=== PATIENT | female | born 1990 | race Caucasian/White ===

== ENCOUNTER 2021-04-19 08:51 | Observation (INO) | payer OTHER ==
[~2021-04-19] VITALS: Ht 167.6 cm; Wt 86.2 kg
[2021-04-19] MEDS ORDERED: FERR325E14 PO (09:11)
[2021-04-19] MEDS ORDERED: AMOX500C25 PO (09:11)
[2021-04-19] MEDS ORDERED: PNV91TAB8 PO (09:11)
[2021-04-19 09:25] VITALS: BP 105/64
== END 2021-04-19 12:00 | disposition home or self-care (01) ==
LOC: MLD 08:51
PROVIDERS: ADMIT Obstetrics & Gynecology; ATTEND Obstetrics & Gynecology
DX: O26.893 Other specified pregnancy related conditions, third trimester (principal); R10.9 Unspecified abdominal pain; Z3A.29 29 weeks gestation of pregnancy
CPT/HCPCS: 36415; 59025; 81000; 86886; 86900; 86901; G0378; G0379

== ENCOUNTER 2021-07-03 22:30 | Inpatient (IN) | payer OTHER, SELFPAY ==
[~2021-07-03] VITALS: Ht 170.2 cm; Wt 95.3 kg
[~2021-07-03 22:30] MED LIST: AMOX500C25 PO; FERR325E14 PO; PNV91TAB8 PO
[2021-07-03] MEDS ORDERED: ONDANSETRON 4 MG/2 ML VIAL IVP PRN (23:45)
[2021-07-03] MEDS ORDERED: MORPHINE SULFATE 5 MG/ML VIAL IVP PRN (23:45)
[2021-07-04] MEDS ORDERED: MISOPROSTOL 25 MCG TAB VG SCH
[2021-07-04] MEDS ORDERED: MISOPROSTOL 25 MCG TAB ONE (00:13)
[2021-07-04 00:16] LABS: BASOPHILS % (AUTO) 0.2 % (0.0-2.0); EOSINOPHILS % (AUTO) 0.6 % (0.0-4.0); HEMATOCRIT 28.4 % (36-48); HEMOGLOBIN 9.8 g/dL (12.0-16.0); LYMPHOCYTES # (AUTO) 1.7 K/uL (2.5-16.5); LYMPHOCYTES % (AUTO) 20.7 % (20.5-51.1); MEAN CORPUSCULAR HEMOGLOBIN 31 pg (27-31); MEAN CORPUSCULAR HGB CONC 34 g/dL (33-37); MEAN CORPUSCULAR VOLUME 88.7 fL (80-94); MONOCYTES # (AUTO) 0.5 K/uL (0.8-1.0); NEUTROPHILS # (AUTO) 6.1 K/uL (1.8-7.7); NEUTROPHILS % (AUTO) 72.5 % (42.2-75.2); PLATELET COUNT (AUTO) 156 K/uL (140-450); RED CELL DISTRIBUTION WIDTH 15.9 % (11.6-13.7); WHITE BLOOD COUNT (AUTO) 8.4 K/uL (4.8-10.8)
[2021-07-04] MEDS: LACTATED RINGERS 1,000 ML IV SCH ×2 (00:23→20:36)
[2021-07-04 00:30] LABS: APPEARANCE,URINE CLEAR (CLEAR); BILIRUBIN,URINE NEGATIVE (NEGATIVE); BLOOD, URINE NEGATIVE (NEGATIVE); COLOR,URINE YELLOW (YELLOW); LEUKOCYTE ESTERASE ,URINE NEGATIVE (NEGATIVE); NITRITE, URINE NEGATIVE (NEGATIVE); UGLUCOSE NEGATIVE (NEGATIVE)
[2021-07-04 00:32] LABS: ALBUMIN 2.6 g/dL (3.4-5.0); ANION GAP 13.4 (8-16); CARBON DIOXIDE 24.3 mmol/L (21-32); CREATININE 0.5 mg/dL (0.6-1.3); POTASSIUM 3.7 mmol/L (3.5-5.1); TOTAL BILIRUBIN 0.2 mg/dL (0.0-1.0)
[2021-07-04 01:24] VITALS: BP 112/81
[2021-07-04] MEDS ORDERED: OXYTOCIN 20 UNITS in LACTATED RINGERS 1,000 ML IV SCH (06:00)
--- NOTE | 2021-07-04 09:33 | NUR ---
PATIENT HAS BEEN SCREENED AND CATEGORIZED LOW NUTRITION RISK. PATIENT WILL BE SEEN WITHIN 7 DAYS OF ADMISSION. 07/10/[address]
[2021-07-04] MEDS ORDERED: MORPHINE SULFATE 10 MG/ML VIAL ONE (17:19)
[2021-07-04 17:27] VITALS: BP 122/76
[2021-07-04] MEDS ORDERED: AMPICILLIN 2,000 MG VIAL ONE (17:28)
[2021-07-04] MEDS ORDERED: OXYTOCIN 20 UNITS/LR PREMIX 1,000 ML IV ONE (17:48)
[2021-07-04] MEDS ORDERED: ROPIVACAINE 0.2%/NS PREMIX 200 ML EPI ONE (18:30)
[2021-07-04] MEDS ORDERED: fentaNYL citrate 0.05 MG/ML VIAL ONE (19:18)
[2021-07-04] MEDS ORDERED: AMPICILLIN 1,000 MG VIAL ONE (20:58)
[2021-07-04] MEDS ORDERED: AMPICILLIN 1,000 MG in NACL 0.9% 50 ML IV SCH (21:30)
[2021-07-04] MEDS ORDERED: METHYLERGONOVINE 0.2 MG TAB PO PRN (23:30)
[2021-07-04] MEDS ORDERED: DOCUSATE SODIUM 100 MG GELCAP PO PRN (23:30)
[2021-07-04] MEDS ORDERED: MEASLES, MUMPS, AND RUBELLA 1 VIAL SQVAC ONE (23:30)
[2021-07-04] MEDS ORDERED: OXYTOCIN 10 UNITS/ML VIAL IM PRN (23:30)
[2021-07-04] MEDS ORDERED: IBUPROFEN 800 MG TAB PO PRN (23:30)
[2021-07-04] MEDS ORDERED: BENZOCAINE/MENTHOL 20%-0.5% 60 GM CAN TP PRN (23:30)
[2021-07-04] MEDS ORDERED: SIMETHICONE 80 MG TAB.CHEW PO PRN (23:30)
[2021-07-04] MEDS ORDERED: IBUPROFEN 600 MG TAB PO PRN (23:30)
[2021-07-04] MEDS ORDERED: bisacodyL 5 MG TABEC PO PRN (23:30)
[2021-07-04] MEDS ORDERED: METHYLERGONOVINE 0.2 MG/ML AMP IM PRN (23:30)
[2021-07-05 08:27] LABS: HEMATOCRIT 29.8 % (36-48); HEMOGLOBIN 10.2 g/dL (12.0-16.0)
== END 2021-07-06 18:50 | disposition home or self-care (01) | DRG 560 ==
LOC: MLD 22:30 → MFCC 07-05 03:21
PROVIDERS: ADMIT Obstetrics & Gynecology; ATTEND Obstetrics & Gynecology
PROC: 10E0XZZ Delivery of Products of Conception, External Approach (ICD-10-PCS; principal; 2021-07-04)
PROC: 3E0P7GC Introduction of Other Therapeutic Substance into Female Reproductive, Via Natural or Artificial Opening (ICD-10-PCS; 2021-07-04)
PROC: 3E0R3BZ Introduction of Anesthetic Agent into Spinal Canal, Percutaneous Approach (ICD-10-PCS; 2021-07-04)
PROC: 00HU33Z Insertion of Infusion Device into Spinal Canal, Percutaneous Approach (ICD-10-PCS; 2021-07-04)
PROC: 3E0234Z Introduction of Serum, Toxoid and Vaccine into Muscle, Percutaneous Approach (ICD-10-PCS; 2021-07-06)
DX: O40.3XX0 Polyhydramnios, third trimester, not applicable or unspecified (principal); Z37.0 Single live birth; E66.3 Overweight; O99.284 Endocrine, nutritional and metabolic diseases complicating childbirth; O26.893 Other specified pregnancy related conditions, third trimester; O99.824 Streptococcus B carrier state complicating childbirth; Z20.822 Contact with and (suspected) exposure to COVID-19; M54.9 Dorsalgia, unspecified; O99.893 Other specified diseases and conditions complicating puerperium; Z3A.38 38 weeks gestation of pregnancy; Z67.41 Type O blood, Rh negative
CPT/HCPCS: 36415; 51702; 59200; 59409; 76815; 80053; 81003; 85018; 85025; 86592; 86850; 86886; 86900; 86901; J0290; J2270; J2405; J2590; J2790; J2795; J3010; Q0092